=== PATIENT | female | born 1960 | race Caucasian/White ===

== ENCOUNTER → 2020-04-17 10:28 | Outpatient (BNVA) | payer MEDICAID, SELFPAY | PROVIDERS: Visit Provider Internal Medicine Rheumatology | DX: M05.79 Rheumatoid arthritis with rheumatoid factor of multiple sites without organ or systems involvement (principal); Z79.899 Other long term (current) drug therapy; Z11.59 Encounter for screening for other viral diseases; Z11.1 Encounter for screening for respiratory tuberculosis; Z86.73 Personal history of transient ischemic attack (TIA), and cerebral infarction without residual deficits | CPT/HCPCS: 36415; 99204 ==

== ENCOUNTER 2020-04-17 11:45 | Outpatient (CLI) | payer MEDICAID, SELFPAY ==
--- NOTE | 2020-04-17 11:56 | XR_ITS ---
WS: [id number] CHEST 2 VIEWS HISTORY: rheumatoid arthritis COMPARISON: None available. Lungs: Clear with no abnormality. No pleural effusion or pneumothorax. Cardiac size: Normal. Mediastinum/Aorta: Normal mediastinum. Bones: Normal. XR/XR chest 2V* [id number] IMPRESSION: Normal chest.
--- NOTE | 2020-04-17 11:56 | XR_ITS ---
WS: [id number] LEFT FOOT: 3 VIEW(S) TECHNIQUE: AP, oblique and lateral. HISTORY: rheumatoid arthritis COMPARISON: None available. No acute fracture or dislocation. Normal tarsal/metatarsal alignment. Small erosions on the medial and lateral side of the fifth metatarsal head. Additional small erosions along the lateral second and medial third metatarsal heads. No subluxation. XR/XR foot LT min 3V* [id number] IMPRESSION: Metatarsal head erosions. Most significant involving the fifth metatarsal.
--- NOTE | 2020-04-17 11:56 | XR_ITS ---
WS: [id number] RIGHT HAND: 3 VIEW(S) TECHNIQUE: PA, oblique and lateral. HISTORY: rheumatoid arthritis COMPARISON: None available. No acute fracture or dislocation. Mild interphalangeal joint space narrowing. No subluxation. No erosions. XR/XR hand RT min 3V* [id number] IMPRESSION: Mild osteoarthritis.
--- NOTE | 2020-04-17 11:56 | XR_ITS ---
WS: [id number] LEFT HAND: 3 VIEW(S) TECHNIQUE: PA, oblique and lateral. HISTORY: rheumatoid arthritis COMPARISON: None available. No acute fracture or dislocation. No soft tissue or bone abnormality. Mild interphalangeal joint space narrowing. No erosions. XR/XR hand LT min 3V* [id number] IMPRESSION: Mild osteoarthritis.
--- NOTE | 2020-04-17 11:56 | XR_ITS ---
WS: [id number] RIGHT FOOT: 3 VIEW(S) TECHNIQUE: AP, oblique and lateral. HISTORY: rheumatoid arthritis COMPARISON: None available. No acute fracture or dislocation. Normal tarsal/metatarsal alignment. Erosions involving the medial and lateral aspect of the fifth metatarsal head. Mild osteopenia fourth metatarsal head and suspicious for developing erosions. No subluxation. XR/XR foot RT min 3V* [id number] IMPRESSION: Fifth metatarsal head erosions. Indeterminate for additional erosions fourth me tatarsal head.
== END 2020-04-17 11:46 | disposition home or self-care (01) ==
LOC: RADWPI 11:53
PROVIDERS: PCP Nurse Practitioner Family; Visit Provider Internal Medicine Rheumatology
DX: M06.9 Rheumatoid arthritis, unspecified (principal); M85.872 Other specified disorders of bone density and structure, left ankle and foot; M85.871 Other specified disorders of bone density and structure, right ankle and foot; M19.042 Primary osteoarthritis, left hand; M19.041 Primary osteoarthritis, right hand
CPT/HCPCS: 71046; 73130; 73630; 82306; 86431; 86480; 86704; 86803; 87340

== ENCOUNTER → 2020-05-29 09:19 | Outpatient (BNVA) | payer OTHER, SELFPAY | PROVIDERS: PCP Nurse Practitioner Family; Visit Provider Internal Medicine | DX: M05.79 Rheumatoid arthritis with rheumatoid factor of multiple sites without organ or systems involvement (principal); Z71.89 Other specified counseling | CPT/HCPCS: G0463 ==

== ENCOUNTER → 2020-07-10 12:52 | Outpatient (BNVA) | payer OTHER, SELFPAY | PROVIDERS: PCP Nurse Practitioner Family; Visit Provider Internal Medicine Rheumatology | DX: Z79.899 Other long term (current) drug therapy (principal); M05.79 Rheumatoid arthritis with rheumatoid factor of multiple sites without organ or systems involvement | CPT/HCPCS: 36415; 80076; 82565; 85025; 85651; 86140 ==

== ENCOUNTER → 2020-07-19 14:54 | Outpatient (BNVA) | payer OTHER, SELFPAY | PROVIDERS: PCP Nurse Practitioner Family; Visit Provider Internal Medicine Rheumatology | DX: M05.79 Rheumatoid arthritis with rheumatoid factor of multiple sites without organ or systems involvement (principal); Z79.899 Other long term (current) drug therapy; Z86.73 Personal history of transient ischemic attack (TIA), and cerebral infarction without residual deficits; Z87.891 Personal history of nicotine dependence | CPT/HCPCS: 99214 ==

== ENCOUNTER → 2020-11-15 14:59 | Outpatient (BNVA) | payer OTHER, SELFPAY | PROVIDERS: PCP Nurse Practitioner Family; Visit Provider Internal Medicine Rheumatology | DX: M05.79 Rheumatoid arthritis with rheumatoid factor of multiple sites without organ or systems involvement (principal); Z79.899 Other long term (current) drug therapy; Z87.891 Personal history of nicotine dependence | CPT/HCPCS: 99214 ==

== ENCOUNTER → 2021-03-20 10:14 | Outpatient (BNVA) | payer OTHER, SELFPAY | PROVIDERS: PCP Nurse Practitioner Family; Visit Provider Internal Medicine Rheumatology | DX: M05.79 Rheumatoid arthritis with rheumatoid factor of multiple sites without organ or systems involvement (principal); Z79.899 Other long term (current) drug therapy; Z86.73 Personal history of transient ischemic attack (TIA), and cerebral infarction without residual deficits; Z71.89 Other specified counseling; Z87.891 Personal history of nicotine dependence | CPT/HCPCS: 99214 ==

== ENCOUNTER → 2023-05-22 11:51 | Outpatient (BNVA) | payer OTHER, SELFPAY | PROVIDERS: PCP Nurse Practitioner Family; Visit Provider Internal Medicine Rheumatology | DX: Z79.899 Other long term (current) drug therapy (principal); M05.79 Rheumatoid arthritis with rheumatoid factor of multiple sites without organ or systems involvement; Z71.89 Other specified counseling; M17.0 Bilateral primary osteoarthritis of knee | CPT/HCPCS: 36415; 80076; 82565; 85025; 86140 ==

== ENCOUNTER → 2023-08-26 11:13 | Outpatient (BNVA) | payer OTHER, SELFPAY | PROVIDERS: PCP Nurse Practitioner Family; Visit Provider Internal Medicine Rheumatology | DX: Z79.899 Other long term (current) drug therapy (principal); M05.79 Rheumatoid arthritis with rheumatoid factor of multiple sites without organ or systems involvement; M25.569 Pain in unspecified knee; R63.4 Abnormal weight loss; Z11.1 Encounter for screening for respiratory tuberculosis; Z71.89 Other specified counseling; M17.0 Bilateral primary osteoarthritis of knee | CPT/HCPCS: 36415; 73562; 80076; 82565; 83036; 85025; 86140; 86480 ==

== ENCOUNTER → 2024-01-21 15:58 | Outpatient (BNVA) | payer OTHER, SELFPAY | PROVIDERS: PCP Nurse Practitioner Family; Visit Provider Internal Medicine Rheumatology | DX: Z79.899 Other long term (current) drug therapy (principal); M05.79 Rheumatoid arthritis with rheumatoid factor of multiple sites without organ or systems involvement | CPT/HCPCS: 36415; 80076; 82565; 85025; 85651; 86140 ==

== ENCOUNTER → 2024-11-24 12:29 | Outpatient (BNVA) | payer OTHER, SELFPAY | PROVIDERS: PCP Nurse Practitioner Family; Visit Provider Internal Medicine Rheumatology | DX: Z79.899 Other long term (current) drug therapy (principal); M05.79 Rheumatoid arthritis with rheumatoid factor of multiple sites without organ or systems involvement; Z71.89 Other specified counseling; M17.0 Bilateral primary osteoarthritis of knee | CPT/HCPCS: 36415; 80076; 82306; 82565; 85025; 85651; 86140; 86480 ==